=== PATIENT | male | born 1990 | race Caucasian/White ===

== ENCOUNTER 2017-06-29 15:49 | Emergency (ER) | payer OTHER ==
[2017-06-29 16:05] VITALS: O2SAT 100
[2017-06-29] MEDS ORDERED: Sodium Chloride 0.9% 1,000 ML IV ONE (16:33)
--- NOTE | 2017-06-29 16:40 | C.PDOC ---
History Of Present Illness 27 y/o male presents to ED with c/o epigastric abdominal pain, nausea, vomiting and diarrhea for 1 week. Patient reports back pain and is requesting back xray, denies fever, chills, blood in stool, dysuria or any other complaints at this time. Time Seen by Provider: 06/29/17 16:18 Chief Complaint (Nursing): Abdominal Pain History Per: Patient History/Exam Limitations: no limitations Onset/Duration Of Symptoms: Days Current Symptoms Are (Timing): Still Present Location Of Pain/Discomfort: Epigastric Past Medical History Reviewed: Historical Data, Nursing Documentation, Vital Signs Vital Signs: Last Vital Signs Temp 98.4 F 06/29/17 18:45 Pulse 68 06/29/17 18:45 Resp 18 06/29/17 18:45 BP 120/70 06/29/17 18:45 Pulse Ox 100 06/29/17 18:45 - Medical History PMH: No Chronic Diseases Surgical History: No Surg Hx Family History: States: No Known Family Hx - Social History Hx Alcohol Use: No Hx Substance Use: No - Immunization History Hx Tetanus Toxoid Vaccination: No Hx Influenza Vaccination: No Hx Pneumococcal Vaccination: No Review Of Systems Constitutional: Negative for: Fever, Chills Gastrointestinal: Positive for: Nausea, Vomiting, Abdominal Pain, Diarrhea. Negative for: Hematochezia Genitourinary: Negative for: Dysuria Musculoskeletal: Positive for: Back Pain Skin: Negative for: Rash Neurological: Negative for: Weakness, Numbness Physical Exam - Physical Exam Appears: Non-toxic, No Acute Distress Skin: Warm, Dry, No Rash Head: Atraumatic, Normacephalic Eye(s): bilateral: Normal Inspection Oral Mucosa: Moist Neck: Normal ROM, Supple Cardiovascular: Rhythm Regular Respiratory: Normal Breath Sounds, No Rales, No Rhonchi, No Wheezing Gastrointestinal/Abdominal: Soft, Tenderness (Epigastric), No Guarding, No Rebound Back: Normal Inspection, No CVA Tenderness, Vertebral Tenderness (lower lumbar) , No Muscle Spasm, No Paraspinal Tenderness Neurological/Psych: Oriented x3, Normal Speech, Normal Cognition, Normal Motor, Normal Sensation ED Course And Treatment - Laboratory Results Result Diagrams: 06/29/17 17:06 06/29/17 17:06 O2 Sat by Pulse Oximetry: 100 (RA) Pulse Ox Interpretation: Normal Medical Decision Making Medical Decision Making: suspect gastrist vs pancreatits vs pud vs constiptation, bedside gallbladder us no e/o of cholecystitis. labs neg. pain resolved. no rlq ttp. advise outpt fu and return precautions. Disposition - Disposition Referrals: [facility] [Outside] [facility] [Outside] [facility] [Outside] [facility] [Outside] Forrest Gasca MD [Staff Provider] - Disposition: HOME/ ROUTINE Disposition Time: 08:00 Condition: STABLE Additional Instructions: follow up with your doctor, gi doctor. return to er with worsening symptoms Prescriptions: Famotidine [Pepcid] 20 mg PO DAILY #20 tab Instructions: Acute Abdomen (Belly Pain) Forms: [employer] (Azeri) - Clinical Impression Clinical Impression: Abdominal pain - Scribe Statement The provider has reviewed the documentation as recorded by the Scribe Lorrie Blunt All medical record entries made by the Scribe were at my direction and personally dictated by me. I have reviewed the chart and agree that the record accurately reflects my personal performance of the history, physical exam, medical decision making, and the department course for this patient. I have also personally directed, reviewed, and agree with the discharge instructions and disposition.
[2017-06-29] MEDS ORDERED: Sodium Chloride 0.9% 1,000 ML ONE (16:51)
[2017-06-29 16:52] LABS: URINE BACTERIA RARE (<OCC); URINE BILIRUBIN NEGATIVE (NEGATIVE); URINE BLOOD NEGATIVE (NEGATIVE); URINE CLARITY Clear (Clear); URINE COLOR Yellow (YELLOW); URINE GLUCOSE (UA) NORMAL (Normal); URINE LEUKOCYTE ESTERASE NEG Leu/uL (Negative); URINE PROTEIN NEGATIVE (NEGATIVE); URINE UROBILINOGEN NORMAL mg/dL (0.2-1.0)
--- NOTE | 2017-06-29 17:11 | RAD ---
PROCEDURE: Lumbar spine dated 06/29/2017 HISTORY: Back pain COMPARISON: Comparison made with prior radiographs lumbar spine dated 01/26/2015 FINDINGS: Note that the examination is somewhat limited due to overlying bowel related artifact particularly on the lateral view BONES: No evidence of acute compression fractures no retropulsed fragments. Vertebral bodies exhibit normal stature. Vertebral bodies and facets normally aligned. DISC SPACES: Disc space heights maintained. OTHER FINDINGS: None. IMPRESSION: No acute fractures.
[2017-06-29 17:12] LABS: BASO % 0.2 % (0.0-2.0); EOS % 30.2 % (0.0-4.0); HEMOGLOBIN 14.8 g/dL (12.0-18.0); LYMPH # 1.8 K/uL (1.0-4.3); LYMPH % 28.3 % (20.0-40.0); MEAN CORPUSCULAR HEMOGLOBIN 31.2 pg (27.0-31.0); MEAN CORPUSCULAR HGB CONC 34.2 g/dL (33.0-37.0); MEAN PLATELET VOLUME 8.1 fL (7.2-11.7); MONO # 0.5 K/uL (0.0-0.8); MONO % 7.3 % (0.0-10.0); NEUT # 2.2 K/uL (1.8-7.0); NRBC % 0.1 % (0.0-2.0); PLATELET COUNT 204 K/uL (130-400); RBC 4.73 Mil/uL (4.40-5.90); RED CELL DISTRIBUTION WIDTH 13.1 % (11.5-14.5)
[2017-06-29 17:21] LABS: MEAN CELL VOLUME 91.2 fL (80.0-94.0); WHITE BLOOD COUNT 6.5 K/uL (4.8-10.8)
[2017-06-29 17:30] LABS: ALB/GLOB RATIO 1.2 (1.0-2.1); ALT/SGPT 31 U/L (21-72); AST/SGOT 33 U/L (17-59); BLOOD UREA NITROGEN 17 mg/dL (9-20); CALCIUM 8.9 mg/dl (8.6-10.4); GFR AFRICAN-AMERICAN > 60; GFR NON-AFRICAN AMERICAN > 60; LIPASE 35 U/L (23-300)
[2017-06-29 18:03] LABS: EOSINOPHIL 28 % (0-4); LYMPHOCYTE 21 % (20-40); MONOCYTE 6 % (0-10); NEUTROPHIL 45 % (50-75); PLATELET ESTIMATE NORMAL (NORMAL); TOTAL CELLS COUNTED 100
[2017-06-29 18:47] VITALS: BP 120/70; PULSE 68; RESP 18; TEMP 98.4
== END 2017-06-29 18:47 | disposition home or self-care (01) ==
LOC: C.ER 15:49
DX: R10.13 Epigastric pain (principal)
CPT/HCPCS: 72100; 80053; 81001; 83690; 85025; 96361; 96374; 96375; 99284; C9113; J2405; J7040

== ENCOUNTER 2018-03-05 08:49 | Outpatient (CLI) | payer OTHER | END 2018-03-05 08:50 | disposition home or self-care (01) | LOC: C.LAB 08:49 ==

== ENCOUNTER 2018-04-12 13:17 | Outpatient (CLI) | payer OTHER | END 2018-04-12 13:18 | disposition home or self-care (01) | LOC: C.USIC 13:18 | DX: N23 Unspecified renal colic (principal); R30.0 Dysuria ==